=== PATIENT | male | born 1985 | race Caucasian/White ===

== ENCOUNTER 2019-09-04 13:22 | Emergency (ER) | payer OTHER, SELFPAY ==
--- NOTE | 2019-09-04 13:37 | ED.GENADULT ---
HPI - General Adult General Chief complaint: Eye Problems Stated complaint: Swollen Eye Time Seen by Provider: 09/04/19 13:46 Source: patient Mode of arrival: ambulatory Limitations: no limitations History of Present Illness HPI narrative: 34-year-old male patient presents to the [facility] with complaints of left upper eyelid swelling that started when he woke up this morning. Patient states he had a boil/pimple to his forehead that busted yesterday. Patient states he does have a history of getting these often. Patient was concerned that when he woke up this morning that the infection might of gotten to his eye so went to come in to be seen. Denies any fevers. Denies any chest pain, shortness of breath. Patient states he has been cleaning the wound on his forehead with regular soap and water and applying antibiotic ointment. Patient denies any vision changes from the left eye but states it is slightly tender on palpation to the upper lid. Related Data Home Medications Medication Instructions Recorded Confirmed Elavil 09/04/19 Xanax 09/04/19 escitalopram oxalate 09/04/19 Allergies Allergy/AdvReac Type Severity Reaction Status Date / Time No Known Allergies Allergy Verified 09/04/19 13:52 Review of Systems Review of Systems: Narrative: CONSTITUTIONAL: Denies fever, chills, or sweats. EYES: Denies visual changes, redness, or discharge. Positive left upper lid swelling since this morning ENT: Denies rhinorrhea, congestion, sore throat, or otalgia. CARDIOVASCULAR: Denies chest pain, palpitations, or edema. RESPIRATORY: Denies cough or dyspnea. GASTROINTESTINAL: Denies abdominal pain, nausea, vomiting, or diarrhea. GENITOURINARY: Denies dysuria or hematuria. SKIN: Denies rash or itching. Positive wound to left side of the forehead MUSCULOSKELETAL: Denies back pain, joint pain, or myalgia. NEUROLOGIC: Denies headache, numbness, or weakness. PSYCHIATRIC: Denies anxiety or depression. FOR[facility]LY [facility], [facility] Past Medical History Medical History (Updated 09/04/19 @ 13:54 by ANURADHA Lin) ADHD Anxiety Bipolar 1 disorder Bronchitis Depression Odd detrimental health beliefs Social History Social History (Updated 09/04/19 @ 13:39 by ANURADHA Lin) Smoking status: Current every day smoker Tobacco type: cigarettes and e-cigarettes/vaping Comments At the time of my signature I agree with nursing past medical history, surgical, social, and family history. There is no relevant family history pertinent to the presenting complaint. Exam Narrative: Exam Narrative: GENERAL: Well-appearing, well-nourished, and in no acute distress. HEAD: Normocephalic, atraumatic. EYES: PERRLA and EOM intact without limitation or complaint of pain, no periorbital soft tissue swelling ,no erythema, warmth or tenderness noted, no obvious deformity. Patient does have some swelling noted to the left upper lid. On eversion of the upper lid there is a small stye noted. No crusting or swelling.no tearing or draining.No photophobia. No nystagmus No FB or lesion on lid eversion. Corneas grossly clear, no obvious FB or hyphens/hypopyon. No injection to sclera. Lids and lashes clear. ENT: Nares clear, no rhinorrhea or epistaxis. Mucous membranes moist. NECK: Supple. No lymphadenopathy CHEST: Clear to auscultation. No respiratory distress. HEART: Regular rate and rhythm. No murmur heard. Normal peripheral pulses. ABDOMEN: Soft, nontender, nondistended, normal active bowel sounds. EXTREMITIES: Normal range of motion. No edema. SKIN: Warm, dry, no rash. Patient has approximately 1 cm round open ulcer area to the left side of the forehead. No induration noted. No warmth noted on palpation. NEURO: No focal deficits. Alert and oriented x3. Course Vital Signs Vital signs: Vital Signs Temperature 36.8 C 09/04/19 13:45 Pulse Rate 80 09/04/19 13:45 Respiratory Rate 16 09/04/19 13:45 Blood Pressure 150/80 H 09/04/19 13:45 Pulse Oxi
[2019-09-04 13:45] VITALS: BP 150/80; PULSE 80; RESP 16; TEMP 36.8; O2SAT 100
--- NOTE | 2019-09-04 13:58 | PC.NURSE ---
1344- Pt denies vision changes.
== END 2019-09-04 13:58 | disposition home or self-care (01) ==
PROVIDERS: Emergency Provider Nurse Practitioner Family; PCP Physician Assistant
DX: H00.024 Hordeolum internum left upper eyelid (principal); L98.499 Non-pressure chronic ulcer of skin of other sites with unspecified severity; F90.9 Attention-deficit hyperactivity disorder, unspecified type; F41.9 Anxiety disorder, unspecified; F31.9 Bipolar disorder, unspecified; F17.210 Nicotine dependence, cigarettes, uncomplicated; R03.0 Elevated blood-pressure reading, without diagnosis of hypertension
CPT/HCPCS: 99213; G0463